=== PATIENT | female | born 1975 | race American Indian/Alaskan Native ===

== ENCOUNTER 2016-09-11 21:49 | Emergency (ER) | payer SELFPAY ==
[2016-09-11 23:55] LABS: Basophils % (Auto) 0.3 % (0.0-1.8); Eosinophils % (Auto) 1.5 % (0.0-4.3); Hematocrit 38.9 % (30.3-42.9); Mean Corpuscular HGB Conc 34 % (30-34); Mean Corpuscular Hemoglobin 28 pg (28-32); Mean Corpuscular Volume 84 fl (79-97); Platelet Count 330 K/mm3 (140-440); Red Blood Count 4.61 M/mm3 (3.65-5.03); Red Cell Distribution Width 13.5 % (13.2-15.2)
[2016-09-12 00:04] LABS: Alanine Aminotransferase 11 units/L (7-56); Albumin 3.7 g/dL (3.9-5); Albumin/Globulin Ratio 0.9 %; Alkaline Phosphatase 84 units/L (35-129); Anion Gap 19 mmol/L; BUN/Creatinine Ratio 23.33; Bilirubin,Total < 0.20 mg/dL (0.1-1.2); Blood Urea Nitrogen 14 mg/dL (7-17); Carbon Dioxide 22 mmol/L (22-30); Chloride 100.5 mmol/L (98-107); Glucose 151 mg/dL (65-100); Lipase 43 units/L (13-60); Potassium 3.5 mmol/L (3.6-5.0); Sodium 138 mmol/L (137-145)
[2016-09-12 03:10] LABS: Bilirubin,Urine NEG (Negative); Blood,Urine NEG (Negative); Ketones,Urine NEG (Negative); Leukocyte Esterase,Urine NEG (Negative); Nitrite,Urine NEG (Negative); Protein,Urine <15 mg/dL mg/dL (Negative); Urobilinogen,Urine < 2.0 mg/dL (<2.0); WBC,Urine < 1.0 /HPF (0.0-6.0)
[2016-09-12 03:21] LABS: RBC,Urine < 1.0 /HPF (0.0-6.0)
[2016-09-12] MEDS ORDERED: TORADOL IV ONE (07:14)
--- NOTE | 2016-09-12 07:15 | Emergency Department Report ---
ED Abdominal Pain HPI - General Chief Complaint: Abdominal Pain Stated Complaint: LOWER ABD PAIN Time Seen by Provider: 09/12/16 06:53 Source: patient Mode of arrival: Ambulatory Limitations: No Limitations - History of Present Illness Initial Comments: 41-year-old female here with abdominal pain worse over the last week. Patient states the pain started to get significantly worse last night and prompted her to come to the emergency department. She denies fevers chills nausea vomiting. She states that the pain is worse with movement. She has no dysuria no hematuria. She's had a normal menstrual cycle. She does not believe she is . She's never had pain like this before. -: Gradual Location: RLQ, R flank Radiation: none Migration to: no migration Severity: moderate Severity scale (0 -10): 9 Quality: aching Consistency: constant Improves With: nothing Worsens With: movement Associated Symptoms: denies: nausea, vomiting, diarrhea, chills, constipation, dysuria, hematemesis, melena - Related Data Home Medications Medication Instructions Recorded Confirmed Last Taken Triamter/Hctz 37.5-25 mg 0.25 tab PO Q48HR 07/19/14 07/19/14 Unknown [Maxzide-25] Previous Rx's Medication Instructions Recorded Last Taken Type Ibuprofen [Motrin 600 MG tab] 600 mg PO Q8H PRN #30 tablet 09/12/16 Unknown Rx Allergies Allergy/AdvReac Type Severity Reaction Status Date / Time ampicillin Allergy Unknown Verified 07/19/14 07:52 ED Review of Systems ROS: Stated complaint: LOWER ABD PAIN Other details as noted in HPI Comment: All other systems reviewed and negative Constitutional: denies: chills, fever Eyes: denies: eye pain, eye discharge, vision change ENT: denies: ear pain, throat pain Respiratory: denies: cough, shortness of breath, wheezing Cardiovascular: denies: chest pain, palpitations Endocrine: no symptoms reported Gastrointestinal: abdominal pain. denies: nausea, vomiting, diarrhea, constipation Genitourinary: denies: urgency, dysuria, discharge Musculoskeletal: denies: back pain, joint swelling, arthralgia Skin: denies: rash, lesions Neurological: denies: headache, weakness, paresthesias Psychiatric: denies: anxiety, depression Hematological/Lymphatic: denies: easy bleeding, easy bruising ED Past Medical Hx - Past Medical History Hx Hypertension: Yes Hx Diabetes: Yes - Surgical History Past Surgical History?: No - Family History Family history: no significant - Social History Smoking Status: Never Smoker Substance Use Type: None - Medications Home Medications: Home Medications Medication Instructions Recorded Confirmed Last Taken Type Triamter/Hctz 37.5-25 mg 0.25 tab PO Q48HR 07/19/14 07/19/14 Unknown History [Maxzide-25] Ibuprofen [Motrin 600 MG tab] 600 mg PO Q8H PRN #30 tablet 09/12/16 Unknown Rx ED Physical Exam - General Limitations: No Limitations General appearance: alert, in no apparent distress - Head Head exam: Present: atraumatic, normocephalic - Eye Eye exam: Present: normal appearance - ENT ENT exam: Present: mucous membranes moist - Neck Neck exam: Present: normal inspection. Absent: lymphadenopathy - Respiratory Respiratory exam: Present: normal lung sounds bilaterally. Absent: respiratory distress - Cardiovascular Cardiovascular Exam: Present: regular rate, normal rhythm. Absent: systolic murmur, diastolic murmur, rubs, gallop - GI/Abdominal GI/Abdominal exam: Present: soft, tenderness (mild right lower quadrant tenderness), normal bowel sounds. Absent: distended, guarding, rebound - Extremities Exam Extremities exam: Present: normal inspection - Back Exam Back exam: Present: normal inspection. Absent: CVA tenderness (R), CVA tenderness (L) - Neurological Exam Neurological exam: Present: alert, oriented X3 - Psychiatric Psychiatric exam: Present: normal affect, normal mood - Skin Skin exam: Present: warm, dry, intact, normal color. Absent: rash ED Course Vital Signs 09/11/16 09/12/16 09/12/16 22:30 03:20 07:49 Temperature 98.5 F 98.3 F Pulse Rate 87 82 70 Respiratory 18 18 20 Rate Blood Pressure 153/102 139/99 Blood Pressure 150/80 [Right] O2 Sat by Pulse 100 100 100 Oximetry ED Medical Decision Making - Lab Data Result diagrams: 09/11/16 23:02 09/11/16 23:02 Laboratory Results - last 24 hr 09/11/16 09/11/16 09/11/16 23:02 23:02 Unknown WBC 10.0 RBC 4.61 Hgb 13.0 Hct 38.9 MCV 84 MCH 28 MCHC 34 RDW 13.5 Plt Count 330 Lymph % (Auto) 32.5 [place] % (Auto) 6.4 Eos % (Auto) 1.5 Baso % (Auto) 0.3 Lymph # 3.3 [place] # 0.6 Eos # 0.1 Baso # 0.0 Seg Neutrophils % 59.3 Seg Neutrophils # 6.0 Sodium 138 Potassium 3.5 L Chloride 100.5 Carbon Dioxide 22 Anion Gap 19 BUN 14 Creatinine 0.6 L Estimated GFR > 60 BUN/Creatinine Ratio 23.33 Glucose 151 H Calcium 9.0 Total Bilirubin < 0.20 AST 9 ALT 11 Alkaline Phosphatase 84 Total Protein 8.0 Albumin 3.7 L Albumin/Globulin Ratio 0.9 Lipase 43 Urine Color Straw Urine Turbidity Clear Urine pH 5.0 Ur Specific [place] 1.012 Urine Protein <15 mg/dl Urine Glucose (UA) Neg Urine Ketones Neg Urine Blood Neg Urine Nitrite Neg Urine Bilirubin Neg Urine Urobilinogen < 2.0 Ur Leukocyte Esterase Neg Urine WBC (Auto) < 1.0 Urine RBC (Auto) < 1.0 U Epithel Cells (Auto) < 1.0 Urine HCG, Qual Negative - Medical Decision Making Patient is a 41-year-old female here with complaint of abdominal pain. Patient states the pain is worsened over the last week. It is worse with movement. Mild tenderness in her right lower quadrant. I do not suspect this is appendicitis. Her white count is normal. Plan to get an ultrasound of her ovaries. Labs are otherwise unremarkable. Ultrasound shows her right sided ovarian cyst. She has a small fibroid as well. Plan to discharge home with NSAIDs. Portions of this chart were dictated with dictation software. There may be dictation errors contained within this note. Critical care attestation.: If time is entered above; I have spent that time in minutes in the direct care of this critically ill patient, excluding procedure time. ED Disposition Clinical Impression: Ovarian cyst Disposition: DC-01 TO HOME OR SELFCARE Is pt being admited?: No Condition: Stable Instructions: Abdominal Pain (ED), Ovarian Cyst (ED) Prescriptions: Ibuprofen [Motrin 600 MG tab] 600 mg PO Q8H PRN #30 tablet PRN Reason: Pain
--- NOTE | 2016-09-12 08:30 | Ultrasound Report ---
Transvaginal pelvic ultrasound. History: Right pelvic pain. Findings: The uterus is normal in size and configuration. There is a 1.9 cm hypoechoic lesion in the posterior fundus consistent with a small fibroid. The left ovary is normal. Follicular cysts are noted. The right ovary, there is a 1.3 cm cyst. No other adnexal masses. There is minimal fluid within the cul-de-sac. Impression: 1. 1.3 cm right ovarian cyst with minimal free fluid in the cul-de-sac.. 2. Small posterior uterine fibroid.
[2016-09-12 10:09] VITALS: BP 130/85
== END 2016-09-12 10:18 | disposition home or self-care (01) ==
LOC: ED 21:49
DX: N83.201 Unspecified ovarian cyst, right side (principal); I10 Essential (primary) hypertension; E11.9 Type 2 diabetes mellitus without complications; Z88.1 Allergy status to other antibiotic agents
CPT/HCPCS: 36415; 76830; 80053; 81001; 81025; 83690; 85025; 96374; 99284; J1885